=== PATIENT | female | born 1970 ===

== ENCOUNTER 2025-06-13 14:41 | Outpatient (AMB) | payer OTHER, SELFPAY ==
--- OUTSIDE RECORDS SUMMARY | 2025-06-13 15:21 | XMS_ITS | Clinical Summary ---
Author Organization [facility] [address] [place] [address] [place] [phone] Phone Care Team Providers Care Senior Net Web Developer Name Role Phone Feliberto Ribeiro MD Primary Care Provider [phone] Allergies No known active allergies Medications loratadine (CLARITIN) 10 mg tablet Take 1 tablet (10 mg total) by mouth 1 (one) time each day. Active solifenacin (VESICARE) 5 mg tablet Take 1 tablet (5 mg total) by mouth 1 (one) time each day. 90 each 1 5 07/25/20 25 Active fluticasone propionate (FLONASE) 50 mcg/actuation nasal spray Administer 2 sprays into each nostril 1 (one) time each day. 16 g 2 5 Active triamcinolone (KENALOG) 0.1 % ointment Apply topically 2 (two) times a day if needed for irritation or rash. 15 g 5 07/08/20 25 Active Active Problems Problem Noted Date Diagnosed Date Postmenopausal bleeding 12/29/2024 Assessment & Plan (12/29/2024 2:00 PM EST): I counseled the patient that PMB can be secondary to precancer or cancer. This can be evaluated by US and/or endometrial biopsy. If the endometrial lining is 5 mm or greater, an endometrial biopsy is usually performed. If the endometrial lining is 4 mm or less, no biopsy needed unless bleeding continues. Given she was sampled two years ago and had a thin lining, with no ongoing bleeding, will start with US. Encounters Date Type Department Care Team Description 03/28/2025 3:00 PM EDT Treatment Pelvic Floor Rehabilitation - [address] [phone] Jen Gordon PT Urge urinary incontinence (Primary Dx); Urinary urgency; Urinary frequency; Muscle weakness 03/28/2025 Plan of Care Documentation Pelvic Floor Rehabilitation - [address] [phone] from Last 3 Months Medical History Medical History Date Comments Allergic rhinitis DX:Allergic rh initis; COMMENT: [facility] Papanicolaou smear of cervix with atypical squamous cells of undetermined significance (ASC-US) 11/09/2012 DX:Papanicolaou sme ar of cervix with atypical squamous cells of undetermined significance (ASC-US) Family History Medical History Relation Name Comments Breast cancer Aunt pat Other cancer Father Other: Lung ca mets to lung Father Other: copd Mother Diabetes Paternal Grandmother Colon cancer Neg Hx Ovarian cancer Neg Hx Pancreatic cancer Neg Hx Prostate cancer Neg Hx Uterine cancer Neg Hx Relation Name Status Comments Aunt pat Father (Age 52) lung cance r Mother Alive Paternal Grandmother Social History Tobacco Use Types Packs/Day Years Used Date Smoking Tobacco: Former Smokeless Tobacco: Never Tobacco Cessation:Counseling Given: Not Answered Alcohol Use Standard Drinks/Week Comments No 0 (1 standard drink = 0.6 oz pur e alcohol) Comments No Sex and Gender Information Value Date Recorded Sex Assigned at Not on file Legal Sex Female 8:34 PM EST Gender Identity Not on file Sexual Orientation Not on file Obstetrics History Para Term AB IAB SAB Ectopic Multiple Livin g Live Births 1 1 1 Date Outcome GA Total Labor Labor/2nd/3rd Weight Sex Type Anes PTL Jennifer A1 A5 Name Clin Term Last Filed Vital Signs Vital Sign Reading Time Taken Comments Blood Pressure 105/75 03/10/2025 7:30 AM EDT Pulse 79 03/10/2025 7:30 AM EDT Temperature 36.5 C (97.7 F) 03/10/2025 7:30 AM EDT Respiratory Rate 14 03/10/2025 7:30 AM EDT Oxygen Saturation - - Inhaled Oxygen Concentration - - Weight 98.9 kg (218 lb) 03/10/2025 7:30 AM EDT Height 175.3 cm (5' 9 ) 01/26/2025 2:55 PM EDT Body Mass Index 32.19 01/26/2025 2:55 PM EDT Plan of Treatment Upcoming Encounters Date Type Department Care Team (Late st Contact Info) Description 07/18/2025 7:30 AM EDT Appointment Radiology Department - [address] [phone] 08/02/2025 3:15 PM EDT Office Visit Urogynecology - [address] [phone] Chasity Hernandez MD [address] [place] [address] [address] [place] [address] Health Maintenance Due Date Last Done Comments Hepatitis B Vaccines (1 of 3 - 19+ 3-dose series) 1989 Pneumococcal Vaccine: 50+ Years (1 of 1 - PCV) 2020 Zoster Vaccines (1 of 2) 2020 Cholesterol Screening (Lipid Panel) 10/05/2022 Colorectal Cancer Screening: Colonoscopy 10/05/2022 HIV Screening 10/05/2022 Hepatitis C Screening 10/05/2022 Social Influencers of Health Screening 10/05/2022 COVID-19 Vaccine ( season) 2024 10/13/2021, 02/02/2021, 01/12/2021 Depression Screening 10/27/2024 Cervical Cancer Screening: Pap Smear 06/20/2025 06/20/2022 Influenza Vaccine (#1) 2025 07/31/2012, 2004 Breast Cancer Screening 07/09/2026 07/09/20 24, 07/09/2024, 06/17/2023, Additional history exists DTaP,Tdap,and Td Vaccines (5 - Td or Tdap) 04/21/2032 04/21/2022, 05/16/2021, 12/14/2009, Additional history exists HIB Vaccines Aged Out No longer eligi ble based on patient's age to complete this topic HPV Vaccines Aged Out No longer eligi ble based on patient's age to complete this topic Hepatitis A Vaccines Aged Out No long er eligible based on patient's age to complete this topic IPV Vaccines Aged Out No longer eligi ble based on patient's age to complete this topic MMR Vaccines Aged Out No longer eligi ble based on patient's age to complete this topic Meningococcal ACWY Vaccine Aged Out N o longer eligible based on patient's age to complete this topic Meningococcal B Vaccine Aged Out No l onger eligible based on patient's age to complete this topic RSV Immunization Patients Under 20 months Aged Out No longer eligible based on patient's age to complete this topic Varicella Vaccines Aged Out No longer eligible based on patient's age to complete this topic Procedures Procedure Name Priority Date/Time Associated Diagnosis Comments SCREENING MAMMOGRAPHY BI 2-VIEW BREAST INC CAD Routine 07/09/2024 7:36 AM EDT Encounter for screening mammogram for malignant neoplasm of breast PAP SMEAR Routine 06/20/2022 from Last 3 Months or Most Recently Relevant to Health Maintenance Results * SCREENING MAMMOGRAPHY BI 2-VIEW BREAST INC CAD (07/09/2024 7:36 AM EDT) Anatomical Region Laterality Modality Radiographic Ese ging 06/17/2023 4:03 PM EDT Narrative 07/09/2024 8:23 AM EDT This is a summary report. The complete report is available in the patient's medical record. If you cannot access the medical record, please contact the sending organization for a detailed fax or copy. Full field digital screening tomosynthesis mammography, reviewed with CAD and compared to previous mammograms dating back to 11/24/2019 with most recent of 06/17/2023. The breasts are composed of fatty and fibroglandular tissue. No suspicious mass, architectural distortion or suspicious calcifications are identified. IMPRESSION: : No mammographic evidence of malignancy. BIRADS 1-Negative; N. Breast density: The breasts have scattered areas of fibroglandular density. 5 year breast cancer risk assessment 0.8 % Lifetime breast cancer risk assessment 6.1 % Breast cancer risk category Low (<15%) Location: [facility], [address] [place] [address], [address], [phone] Procedure Note Ambreen Chris MD - 08/11/2024 This is a summary report. The complete report is available in thepatient's medical record. If you cannot access the medical record, pleasecontact the sending organization for a detailed fax or copy. Full field digital screening tomosynthesis mammography, reviewed with CADand compared to previous mammograms dating back to 11/24/2019 with mostrecent of 06/17/2023. The breasts are composed of fatty and fibroglandulartissue. No suspicious mass, architectural distortion or suspiciouscalcifications are identified. IMPRESSION: : No mammographic evidence of malignancy. BIRADS 1-Negative; N. Breast density: The breasts have scattered areas of fibroglandulardensity. 5 year breast cancer risk assessment 0.8 % Lifetime breast cancer risk assessment 6.1 % Breast cancer risk category Low (<15%) Location: [address], [address], [phone] Feliberto Ribeiro MD IMG XR PROCEDURES Final Result * Pap smear (06/20/2022) 06/20/2022 Narrative HISTORICAL TESTING LAB RESULTING AGENCY - 07/03/2022 2:51 PM EDT [id number] THINPREP PAP, IMAGED: ATYPICAL SQUAMOUS CELLS OF UNDETERMINED SIGNIFICANCE (ASCUS) . RAPHAEL MICHEL , CT(ASCP) (CASE SCREENED 06 29 2022) JULIANO SHARMA M.D. , PATHOLOGIST (CASE ELECTRONICALLY SIGNED 07 02 2022) RESULT OF APTIMA HIGH RISK HPV ASSAY: HIGH RISK HPV: NEGATIVE (SEROTYPES 16,18,31,33,35,39,45,51,52,56,58,59,66,68) COMPLETED ON 2022-06-24 ADEQUACY: SATISFACTORY ENDOCERVICAL/TRANSFORMATION ZONE COMPONENT PRESENT. SOURCE: THINPREP PAP HPV ANY DX: REFLEX 16 AND 18, CERVICAL, IMAGED CLINICAL INFORMATION: HPV ANY DIAGNOSIS. POSITIVE H/O ASCUS, LMP 04/13/2020, [Z12.4] us Jessy Catherine MD LAB CYTOLOGY ORDERABLES Fin al Result HISTORICAL TESTING LAB RESULTING AGENCY from Last 3 Months or Most Recently Relevant to Health Maintenance Insurance [facility] Care Teams Senior Net Web Developer Relationship Specialty Start Date End Date Feliberto Ribeiro MD [address] [place] [address] PCP - General 06/04/01
== END 2025-06-13 14:45 | disposition home or self-care (01) ==
LOC: HO.HMGAL 14:41
PROVIDERS: PCP Internal Medicine; Visit Provider Registered Nurse Emergency
DX: J30.89 Other allergic rhinitis (principal)
CPT/HCPCS: 95117; 95165

== ENCOUNTER 2025-07-11 15:23 | Outpatient (AMB) | payer OTHER, SELFPAY ==
--- OUTSIDE RECORDS SUMMARY | 2025-07-11 20:49 | XMS_ITS | Clinical Summary ---
Author Organization [facility] [address] [place] [address] [place] [phone] Phone Care Team Providers Care Plisse Machine Operator Name Role Phone Feliberto Ribeiro MD Primary Care Provider [phone] Allergies No known active allergies Medications loratadine [...] rash. 15 g 5 07/08/20 25 Active Problems Problem Noted Date Diagnosed Date [...] no ongoing bleeding, will start with US. Medical History Medical History Date Comments Allergic rhinitis DX:Allergic rh initis; COMMENT: [facility] [place] [facility] Papanicolaou smear of cervix with atypical [...] 07/18/2025 7:30 AM EDT Appointment Radiology Department [address] [phone] 08/02/2025 3:15 PM EDT Office Visit Urogynecology [facility] [address] [place] [phone] Chasity Hernandez MD [address] [place] [address] [address] [place] [address] Health Maintenance Due Date Last Done Comments Hepatitis B Vaccines (1 of 3 - 19+ 3-dose series) 1989 Pneumococcal Vaccine: 50+ Years (1 of 1 - PCV) 2020 Zoster Vaccines (1 of 2) 2020 Cholesterol Screening (Lipid Panel) 10/05/2022 Colorectal Cancer Screening: Colonoscopy 10/05/2022 HIV Screening 10/05/2022 Hepatitis C Screening 10/05/2022 Social Influencers of Health Screening 10/05/2022 Depression Screening 10/27/2024 Cervical Cancer Screening: Pap Smear 06/20/2025 06/20/2022 COVID-19 Vaccine ( season) 2025 10/13/2021, 02/02/2021, 01/12/2021 Influenza Vaccine (#1) 2025 07/31/2012, 2004 Breast Cancer Screening 07/09/2026 07/09/20, 07/09/2024, 06/17/2023, Additional history exists DTaP,Tdap,and Td [...] Breast cancer risk category Low (<15%) Location: [facility], [address] [place] [address], [address], [phone] Procedure Note Ambreen Chris MD - 08/11/2024 [...] Breast cancer risk category Low (<15%) Location: [facility], [address] [place] [address], [address], [phone] Feliberto Ribeiro MD IMG XR PROCEDURES Final Result * Pap smear (06/20/2022) 06/20/2022 Narrative HISTORICAL TESTING LAB RESULTING AGENCY - 07/03/2022 2:51 PM EDT [id number] THINPREP PAP, IMAGED: ATYPICAL SQUAMOUS CELLS OF [...] Most Recently Relevant to Health Maintenance Insurance [facility] Care Teams Plisse Machine Operator Relationship Specialty Start Date End Date Feliberto Ribeiro MD [address] [place] [address] PCP - General 06/04/01
== END 2025-07-11 15:23 | disposition home or self-care (01) ==
LOC: HO.HMGAL 15:23
PROVIDERS: PCP Internal Medicine; Visit Provider Registered Nurse Emergency
DX: J30.89 Other allergic rhinitis (principal)
CPT/HCPCS: 95117; 95165

== ENCOUNTER 2025-08-01 15:23 | Outpatient (AMB) | payer OTHER, SELFPAY ==
--- OUTSIDE RECORDS SUMMARY | 2025-08-01 17:48 | XMS_ITS | Encounter Summary ---
Author Organization [facility] Address [address] [place] [address] Care Team Providers Care Steel Molder Name Role Phone Feliberto Ribeiro MD Primary Care Provider [phone] Encounter Details Date Type Department Care Team Description 12/29/2023 Orders Only Medical Records [address] [place] [address] Ebonie Gar MD [address] [place] [address] Social History Tobacco Use Types Packs/Day Years Used Date Smoking Tobacco: Former Smokeless Tobacco: Never Comments:1993 Alcohol Use Standard Drinks/Week Comments No 0 (1 standard drink = 0.6 oz pur e alcohol) Sex Assigned at Date Recorded Not on file Job Start Date Occupation Industry Not on file Not on file Not on file documented as of this encounter Progress Notes * Leonel Gar MD - 01/19/2024 9:30 PM EDT Dear Елена, The polyp(s) that were removed during your colonoscopy were precancerous, but benign. Fortunately, we removed them and therefore, they will not cause any more problems in the future. Based on the number, the size, and the features of the polyp(s) removed, I recommend a follow-up colonoscopy in 5 years. Before, the 5 years are due, we will send you a reminder in the mail asking you to contact our office to have the colonoscopy scheduled. I would like to personally thank you for allowing us to take care of you. Please don't hesitate to call us for any questions or concerns. Regards, Sydnie Gar MD Board Certified Gastroenterology and Internal Medicine Transplant Hepatology [facility] documented in this encounter Plan of Treatment Not on file documented as of this encounter Procedures Procedure Name Priority Date/Time Associated Diagnosis Comments OUTSIDE PATHOLOGY Routine 12/24/2023 documented in this encounter Results * OUTSIDE PATHOLOGY (12/24/2023) Ebonie Gar MD OUTSIDE LAB documented in this encounter Visit Diagnoses Not on filedocumented in this encounter Care Teams Steel Molder Relationship Specialty Start Date End Date Feliberto Ribeiro MD [address] [place] [address] PCP - General 06/04/01 documented as of this encounter
--- OUTSIDE RECORDS SUMMARY | 2025-08-01 17:48 | XMS_ITS | Encounter Summary ---
Author Organization [facility] Address [address] [place] [address] Care Team Providers Care Cable Braider Name Role Phone Feliberto Ribeiro MD Primary Care Provider [phone] Encounter Details Date Type Department Care Team Description 08/16/2020 Orders Only Medical Records [address] [place] [address] Ebonie Gar MD [address] [place] [address] Social History Tobacco Use Types Packs/Day Years [...] Progress Notes * Leonel Gar MD - 08/22/2020 8:12 PM EDT Dear Елена, The polyp(s) that were removed during your colonoscopy were precancerous, but benign. Fortunately, we removed them and therefore, they will not cause any more problems in the future. Based on the number, the size, and the features of the polyp(s) removed, I recommend a follow-up colonoscopy in 3 years. Before, the 3 years are due, we will send you a reminder in the mail asking you to contact our office to have the colonoscopy scheduled. I would like to personally thank you for allowing us to take care of you. Please don't hesitate to call us for any questions or concerns. Regards, Sydnie Gar MD Board Certified Gastroenterology and Internal Medicine Transplant Hepatology [facility] documented in this encounter Plan of Treatment Not on file documented as of this encounter Procedures Procedure Name Priority Date/Time Associated Diagnosis Comments OUTSIDE PATHOLOGY Routine 08/14/2020 documented in this encounter Results * OUTSIDE PATHOLOGY (08/14/2020) H Chinmay Gar MD OUTSIDE LAB documented in this encounter Visit Diagnoses Not on filedocumented in this encounter Care Teams Cable Braider Relationship Specialty Start Date End Date Feliberto Ribeiro MD [address] [place] [address] PCP - General 06/04/01 documented as of this encounter
--- OUTSIDE RECORDS SUMMARY | 2025-08-01 17:48 | XMS_ITS | Clinical Summary ---
Author Organization [facility] [address] [place] [address] [place] [phone] Phone Care Team Providers Care Classification And Treatment Director Name Role Phone Feliberto Ribeiro MD Primary Care Provider [phone] Allergies No known active allergies Medications loratadine (CLARITIN) 10 mg tablet Take 1 tablet (10 mg total) by mouth 1 (one) time each day. Active fluticasone propionate (FLONASE) 50 mcg/actuation nasal spray Administer 2 sprays into each nostril 1 (one) time each day. 16 g 2 5 Active solifenacin (VESICARE) 5 mg tablet Take 1 tablet (5 mg total) by mouth 1 (one) time each day. 90 each 1 5 01/17/20 26 Active solifenacin (VESICARE) 5 mg tablet Take 1 tablet (5 mg total) by mouth 1 (one) time each day. 90 each 1 5 07/20/20 25 Discontinu ed(Reorder ) triamcinolone (KENALOG) 0.1 % ointment Apply topically [...] Encounters Date Type Department Care Team Description 07/18/2025 7:20 AM EDT - 07/18/2025 11:59 PM EDT Hospital Encounter Radiology Department - [address] [phone] Encounter for screening mammogram for breast cancer Discharge Disposition: Home or Self Care from Last 3 Months Medical History Medical History Date Comments Allergic rhinitis DX:Allergic rh initis; COMMENT: [facility] [place] [facility] Papanicolaou smear of cervix with atypical [...] Livin g Live Births 1 1 1 1 Date Outcome GA Total [...] Care Team (Late st Contact Info) Description 11/10/2025 2:00 PM EST Office Visit Adult Medicine [facility] [address] [place] [address] Feliberto Ribeiro MD [address] [place] [address] Health Maintenance Due Date Last Done Comments Colorectal Cancer Screening: Colonoscopy 1970 Hepatitis B Vaccines (1 of 3 - 19+ 3-dose series) 1989 Pneumococcal Vaccine: 50+ Years (1 of 1 - PCV) 2020 Zoster Vaccines (1 of 2) 2020 Cholesterol Screening (Lipid Panel) 10/05/2022 HIV Screening 10/05/2022 Hepatitis C Screening 10/05/2022 Social Influencers of Health Screening 10/05/2022 Depression Screening 10/27/2024 Cervical Cancer Screening: Pap Smear 06/20/2025 06/20/2022 COVID-19 Vaccine ( - season) 2025 10/13/2021, 02/02/2021, 01/12/2021 Influenza Vaccine (#1) 2025 07/31/2012, 2004 Breast Cancer Screening 07/18/2027 07/18/20, 07/09/2024, 07/09/2024, Additional history exists DTaP,Tdap,and Td Vaccines (5 - Td or Tdap) 04/21/2032 04/21/2022, 05/16/2021, 12/14/2009, Additional history exists RSV Immunization Adult Patients (1 - 1-dose 75+ series) 2045 HIB Vaccines Aged Out No longer eligi [...] Procedure Name Priority Date/Time Associated Diagnosis Comments MG MAMMO DIGITAL SCREENING W JUAN J BILAT Routine 07/18/2025 7:44 AM EDT Encounter for screening mammogram for breast cancer PAP SMEAR Routine 06/20/2022 from Last 3 Months or Most Recently Relevant to Health Maintenance Results * MG Mammo Digital Screening w Juan J bilat (07/18/2025 7:44 AM EDT) Anatomical Region Laterality Modality Breast Bilateral Mammography 07/19/2025 7:14 PM EDT Impressions 07/19/2025 7:18 PM EDT 1. No mammographic evidence of malignancy 2. Scattered fibroglandular tissue BI-RADS CATEGORY: 2 - BENIGN RECOMMENDATION: Screening bilateral mammogram is recommended in 1 year. Mammo Location: [facility], [address] [place] [address], [id number], . -------- FINAL REPORT -------- Dictated By: Radha Cunningham Dictated Date: 07/19/2025 19:14 ET Assigned Physician: Radha Cunningham Reviewed and Electronically Signed By: Radha Cunningham Signed Date: 07/19/2025 19:18 ET Workstation ID: [id number] Transcribed By: Self Edit Transcribed Date: 07/19/2025 19:14 ET Narrative 07/19/2025 7:18 PM EDT A BILATERAL DIGITAL 3D SCREENING MAMMOGRAPHY HISTORY: Routine screening. Family history of breast cancer in aunt COMPARISON: Multiple priors dating back to 03/27/2021 Technique: Bilateral full field digital mammography (3D) was performed using standard CC and MLO projections CAD was used to evaluate this mammogram. FINDINGS: Right: No suspicious masses, groups of microcalcification or areas of architectural distortion identified. Stable typically benign parenchymal asymmetries. Left: No suspicious masses, groups of microcalcification or areas of architectural distortion identified. Stable typically benign parenchymal asymmetries. BREAST DENSITY: B - There are scattered areas of fibroglandular density. Procedure Note Radha Cunningham MD - 07/19/2025 A BILATERAL DIGITAL 3D SCREENING MAMMOGRAPHY HISTORY: Routine screening. Family history of breast cancer in aunt COMPARISON: Multiple priors dating back to 03/27/2021 Technique: Bilateral full field digital mammography (3D) was performedusing standard CC and MLO projections CAD was used to evaluate this mammogram. FINDINGS: Right: No suspicious masses, groups of microcalcification or areas ofarchitectural distortion identified. Stable typically benign parenchymalasymmetries. Left: No suspicious masses, groups of microcalcification or areas ofarchitectural distortion identified. Stable typically benign parenchymalasymmetries. BREAST DENSITY: B - There are scattered areas of fibroglandular density. IMPRESSION: 1. No mammographic evidence of malignancy 2. Scattered fibroglandular tissue BI-RADS CATEGORY: 2 - BENIGN RECOMMENDATION: Screening bilateral mammogram is recommended in 1 year. Mammo Location: [facility], [address] [place] [address], [address], . -------- FINAL REPORT -------- Dictated By: Radha Cunningham Dictated Date: 07/19/2025 19:14 ET Assigned Physician: Radha Cunningham Reviewed and Electronically Signed By: Radha Cunningham Signed Date: 07/19/2025 19:18 ET Workstation ID: [id number] Transcribed By: Self Edit Transcribed Date: 07/19/2025 19:14 ET Feliberto Ribeiro MD IMG BI PROCEDURES Final Result * Pap smear (06/20/2022) 06/20/2022 Narrative HISTORICAL TESTING LAB RESULTING AGENCY - 07/03/2022 2:51 PM EDT [id number] THINPREP PAP, IMAGED: ATYPICAL SQUAMOUS CELLS OF UNDETERMINED SIGNIFICANCE (ASCUS) . RAPHAEL MICHEL , BRITTANI(ASCP) (CASE SCREENED 06 29 2022) JULIANO SHARMA M.D. , PATHOLOGIST (CASE ELECTRONICALLY SIGNED 07 02 2022) RESULT OF APTIMA HIGH RISK HPV ASSAY: HIGH RISK HPV: NEGATIVE (SEROTYPES 16,18,31,33,35,39,45,51,52,56,58,59,66,68) COMPLETED ON 2022-06-24 ADEQUACY: SATISFACTORY ENDOCERVICAL/TRANSFORMATION ZONE COMPONENT PRESENT. SOURCE: THINPREP PAP HPV ANY DX: REFLEX 16 AND 18, CERVICAL, IMAGED CLINICAL INFORMATION: HPV ANY DIAGNOSIS. POSITIVE H/O ASCUS, LMP 04/13/2020, [Z12.4] Jessy Catherine MD LAB CYTOLOGY ORDERABLES Fin al Result HISTORICAL TESTING LAB RESULTING AGENCY from Last 3 Months or Most Recently Relevant to Health Maintenance Insurance [facility] Care Teams Classification And Treatment Director Relationship Specialty Start Date End Date Feliberto Ribeiro MD [address] [place] [address] PCP - General 06/04/01
--- OUTSIDE RECORDS SUMMARY | 2025-08-01 17:48 | XMS_ITS | Encounter Summary ---
Author Organization [facility] Address [address] [place] [address] Care Team Providers Care Upset Operator Name Role Phone Feliberto Ribeiro MD Primary Care Provider [phone] Encounter Details Date Type Department Care Team Description 05/29/2020 Refill Gastroenterology - [address] [place] [phone] Ebonie Gar MD [address] [place] [phone] Social History Tobacco Use Types Packs/Day Years Used Date Smoking Tobacco: Former Smokeless Tobacco: Never Comments:1993 Alcohol Use Standard Drinks/Week Comments No 0 (1 standard drink = 0.6 oz pur e alcohol) Sex Assigned at Date Recorded Not on file Job Start Date Occupation Industry Not on file Not on file Not on file documented as of this encounter Plan of Treatment Not on file documented as of this encounter Visit Diagnoses Not on filedocumented in this encounter Care Teams Upset Operator Relationship Specialty Start Date End Date Feliberto Ribeiro MD [address] [place] [address] PCP - General 06/04/01 documented as of this encounter
--- OUTSIDE RECORDS SUMMARY | 2025-08-01 17:48 | XMS_ITS | Encounter Summary ---
Author Organization [facility] Address [address] [place] [address] Care Team Providers Care Distribution Engineer Name Role Phone Feliberto Ribeiro MD Primary Care Provider [phone] Reason for Visit * Reason Onset Date Comments Mychart Rx Refill 03/05/2023 Encounter Details Date Type Department Care Team Description 03/05/2023 Refill Adult Medicine [address] [phone] Feliberto Ribeiro MD [address] [place] [address] [phone] Mychart Rx Refill Social History Tobacco Use Types Packs/Day Years Used Date Smoking Tobacco: Former Smokeless Tobacco: Never Comments:1994 Alcohol Use Standard Drinks/Week Comments No 0 (1 standard drink = 0.6 oz pur e alcohol) Sex Assigned at Date Recorded Not on file Job Start Date Occupation Industry Not on file Not on file Not on file documented as of this encounter Miscellaneous Notes * Telephone Encounter - Destinee Palma M.A. - 03/06/2023 10:24 AM EDT Lab Results Component Value Date NA 143 06/10/2019 K 4.3 06/10/2019 CO2 28 06/10/2019 CL 108 06/10/2019 BUN 23 06/10/2019 CREAT 1.06 06/10/2019 GLU 96 06/10/2019 CA 9.2 06/10/2019 GFR 55 06/10/2019 Last appt 01/29/23 documented in this encounter Plan of Treatment Not on file documented as of this encounter Visit Diagnoses Not on filedocumented in this encounter Care Teams Distribution Engineer Relationship Specialty Start Date End Date Feliberto Ribeiro MD [address] [place] [phone] PCP - General 06/04/01 documented as of this encounter
--- OUTSIDE RECORDS SUMMARY | 2025-08-01 17:48 | XMS_ITS | Encounter Summary ---
Author Organization [facility] Address [address] [place] [address] Care Team Providers Care Tractor Operator Battery Name Role Phone Feilberto Ribeiro MD Primary Care Provider [phone] Reason for Referral * Non MARQUIS (Routine) - Closed Specialty Diagnoses / Procedures Referred By Patsy moe Referred To Contact Gastroenterology Procedures REFERRAL TO GASTROENTEROLOGY Feliberto Ribeiro MD [address] [place] [id number] Gastro [place]/[address] [address] Referral ID Status Reason Start Date Expiration Date Visits Re quested Visits Authorized [id number] Closed 05/22/2023 05/21/2024 1 1 Reason for Visit * Reason Onset Date Comments Sap Abap Programmer Feedback 05/22/2023 Gastroenterology Encounter Details Date Type Department Care Team Description 05/22/2023 Telephone Adult Medicine [address] [address] Feliberto Ribeiro MD [address] [place] [address] [phone] Sap Abap Programmer Feedback (Gastroenterology) Social History Tobacco Use Types Packs/Day Years [...] encounter Miscellaneous Notes * Telephone Encounter - Crissy Jeancarlos - 05/22/2023 8:50 AM EDT Please review this patients new referral request. The referral has been pended. Please complete thefollowing: If approved> sign order If denied>please give instructions and route to your practice nursing pool. Practice nurse should inform referrals and the patient if denied. Message: gastro: patient received a letter for a colonoscopy , please contact patient to set up theappt. thanks, documented in this encounter Plan of Treatment Not on file documented as of this encounter Visit Diagnoses Not on filedocumented in this encounter Care Teams Tractor Operator Battery Relationship Specialty Start Date End Date Feliberto Ribeiro MD [address] [place] [phone] PCP - General 06/04/01 documented as of this encounter
--- OUTSIDE RECORDS SUMMARY | 2025-08-01 17:48 | XMS_ITS | Encounter Summary ---
Author Organization [facility] Address [address] [place] [address] Care Team Providers Care Email Marketing Processor Name Role Phone Feliberto Ribeiro MD Primary Care Provider [phone] Encounter Details Date Type Department Care Team Description 08/22/2020 Orders Only Medical Records [address] [place] [id number] Abstract, Provider Social History Tobacco Use Types Packs/Day Years [...] on filedocumented in this encounter Care Teams Email Marketing Processor Relationship Specialty Start Date End Date Feliberto Ribeiro MD [address] [place] [address] PCP - General 06/04/01 documented as of this encounter
== END 2025-08-01 15:23 | disposition home or self-care (01) ==
LOC: HO.HMGAL 15:23
PROVIDERS: PCP Internal Medicine; Visit Provider Registered Nurse Emergency
DX: J30.89 Other allergic rhinitis (principal)
CPT/HCPCS: 95117; 95165

== ENCOUNTER 2025-09-05 11:22 | Outpatient (AMB) | payer OTHER, SELFPAY ==
--- OUTSIDE RECORDS SUMMARY | 2025-09-05 13:43 | XMS_ITS | Clinical Summary ---
Author Organization [address] Address [address] [place] [phone] Phone Care Team Providers Care Metal Wire Technician Name Role Phone Feliberto Ribeiro MD Primary Care Provider [phone] Allergies No known active allergies Medications loratadine [...] 90 each 1 5 01/17/20 26 Active Active Problems Problem Noted Date Diagnosed [...] PM EDT Hospital Encounter Radiology Department - [address] [phone] Encounter for screening mammogram for breast cancer Discharge Disposition: Home or Self Care from Last 3 Months Medical History Medical History Date Comments Allergic rhinitis DX:Allergic rh initis; COMMENT: [facility] Papanicolaou smear of cervix with atypical [...] 2:00 PM EST Office Visit Adult Medicine [facility] [place] [address] Feliberto Ribeiro MD [address] [place] [address] Health Maintenance Due Date Last Done Comments [...] Diagnosis Comments MG MAMMO DIGITAL SCREENING W FRANCIS BILAT Routine 07/18/2025 7:44 AM EDT Encounter for screening mammogram for breast cancer PAP SMEAR Routine 06/20/2022 from Last 3 Months or Most Recently Relevant to Health Maintenance Results * MG Mammo Digital Screening w Francis bilat (07/18/2025 7:44 AM EDT) Anatomical Region Laterality Modality Breast Bilateral Mammography 07/19/2025 7:14 PM EDT Impressions 07/19/2025 7:18 PM EDT 1. No mammographic evidence of malignancy 2. Scattered fibroglandular tissue BI-RADS CATEGORY: 2 - BENIGN RECOMMENDATION: Screening bilateral mammogram is recommended in 1 year. Mammo Location: [facility], [address] [place] [address], [id number], . -------- FINAL REPORT -------- Dictated By: Radha Cunningham Dictated Date: 07/19/2025 19:14 ET Assigned Physician: Radha Cunningham Reviewed and Electronically Signed By: Radha Cunningham Signed Date: 07/19/2025 19:18 ET Workstation ID: [id number] Transcribed By: Self Edit Transcribed Date: 07/19/2025 [...] is recommended in 1 year. Mammo Location: [facility], [address] [place] [address], [id number], . -------- FINAL REPORT -------- Dictated By: Radha Cunningham Dictated Date: 07/19/2025 19:14 ET Assigned Physician: Radha Cunningham Reviewed and Electronically Signed By: Radha Cunningham Signed Date: 07/19/2025 19:18 ET Workstation ID: [id number] Transcribed By: Self Edit Transcribed Date: 07/19/2025 19:14 ET Feliberto Ribeiro MD IMG BI PROCEDURES Final Result * Pap smear (06/20/2022) 06/20/2022 Narrative HISTORICAL TESTING LAB RESULTING AGENCY - 07/03/2022 2:51 PM EDT [id number] THINPREP PAP, IMAGED: ATYPICAL SQUAMOUS CELLS OF [...] Most Recently Relevant to Health Maintenance Insurance [facility] Care Teams Metal Wire Technician Relationship Specialty Start Date End Date Feliberto Ribeiro MD [address] [place] [id number] PCP - General 06/04/01
== END 2025-09-05 11:23 | disposition home or self-care (01) ==
LOC: HO.HMGAL 11:22
PROVIDERS: PCP Internal Medicine; Visit Provider Registered Nurse Emergency
DX: J30.89 Other allergic rhinitis (principal)
CPT/HCPCS: 95117; 95165

== ENCOUNTER 2025-10-05 15:39 | Outpatient (AMB) | payer OTHER, SELFPAY ==
--- OUTSIDE RECORDS SUMMARY | 2025-10-06 00:19 | XMS_ITS | Clinical Summary ---
Author Organization [address] Address [address] [place] [phone] Phone Care Team Providers Care Real Estate Administrator Name Role Phone Feliberto Ribeiro MD Primary Care Provider [phone] Allergies No known active allergies Medications loratadine [...] PM EDT Hospital Encounter Radiology Department - [address] [phone] Encounter for screening mammogram for breast cancer [...] Visit Adult Medicine [facility] [address] [place] [address] Feliberto Ribeiro MD [address] [place] [address] Health Maintenance Due Date Last Done Comments [...] is recommended in 1 year. Mammo Location: [facility], [address] [place] [address], [id number], . -------- FINAL REPORT -------- Dictated By: Radha Cunningham Dictated Date: 07/19/2025 19:14 ET Assigned Physician: Radha Cunningham Reviewed and Electronically Signed By: Radha Cunningham Signed Date: 07/19/2025 19:18 ET Workstation ID: [id number] Transcribed By: Self Edit Transcribed Date: 07/19/2025 [...] is recommended in 1 year. Mammo Location: [place] [facility], [address] [place] [address], [address], . -------- FINAL REPORT -------- Dictated By: Radha Cunningham Dictated Date: 07/19/2025 19:14 ET Assigned Physician: Radha Cunningham Reviewed and Electronically Signed By: Radha Cunningham Signed Date: 07/19/2025 19:18 ET Workstation ID: [id number] Transcribed By: Self Edit Transcribed Date: 07/19/2025 19:14 ET Feliberto Ribeiro MD IMG BI PROCEDURES Final Result * Pap smear (06/20/2022) 06/20/2022 Narrative HISTORICAL TESTING LAB RESULTING AGENCY - 07/03/2022 2:51 PM EDT [id number] THINPREP PAP, IMAGED: ATYPICAL SQUAMOUS CELLS OF [...] Most Recently Relevant to Health Maintenance Insurance [facility] Care Teams Real Estate Administrator Relationship Specialty Start Date End Date Feliberto Ribeiro MD [address] [place] [phone] PCP - General 06/04/01
== END 2025-10-05 15:40 | disposition home or self-care (01) ==
LOC: HO.HMGAL 15:39
PROVIDERS: PCP Internal Medicine; Visit Provider Registered Nurse Emergency
DX: J30.89 Other allergic rhinitis (principal)
CPT/HCPCS: 95117; 95165